=== PATIENT | female | born 1995 | race Hispanic/Latino ===

== ENCOUNTER 2016-09-04 02:38 | Emergency (ER) | payer BC ==
[2016-09-04 02:41] VITALS: BP 114/75; PULSE 80; RESP 18; TEMP 97.9; O2SAT 100
--- NOTE | 2016-09-04 03:32 | ED PDOC ---
HPI: Psych/Substance Abuse Time Seen by Provider: 09/04/16 02:42 Chief Complaint (Nursing): Alcohol Ingestion Chief Complaint (Provider): Alcohol Ingestion History Per: Patient History/Exam Limitations: intoxication Onset/Duration Of Symptoms: Hrs Current Symptoms Are (Timing): Still Present Additional History Per: Patient Additional Complaint(s): Kaya Veloz is a 21 year old female with no pertinent past medical history who presents to the ED for evaluation of alcohol intoxication. Denies any complains. No trauma. Past Medical History Reviewed: Historical Data, Nursing Documentation, Vital Signs Vital Signs: Last Vital Signs Temp 97.9 F 09/04/16 02:40 Pulse 80 09/04/16 02:40 Resp 18 09/04/16 02:40 BP 114/75 09/04/16 02:40 Pulse Ox 100 09/04/16 02:40 - Medical History PMH: No Chronic Diseases - Surgical History Surgical History: No Surg Hx - Family History Family History: States: Unknown Family Hx - Social History Alcohol: Social - Allergies Allergies/Adverse Reactions: Allergies Allergy/AdvReac Type Severity Reaction Status Date / Time No Known Allergies Allergy Verified 09/04/16 02:40 Review of Systems ROS Statement: Except As Marked, All Systems Reviewed And Found Negative Musculoskeletal: Negative for: Other (No head injuries) Neurological: Positive for: Change in Speech (Slurred speech), Altered Mental Status (Intoxicated) Physical Exam - Reviewed Nursing Documentation Reviewed: Yes Vital Signs Reviewed: Yes - Physical Exam Appears: Positive for: Well, No Acute Distress. Negative for: Non-toxic, Uncomfortable Head Exam: Positive for: ATRAUMATIC, NORMAL INSPECTION, NORMOCEPHALIC Skin: Positive for: Normal Color, Warm, Dry Eye Exam: Positive for: Normal appearance, EOMI, PERRL Neck: Positive for: Painless ROM, Supple Cardiovascular/Chest: Positive for: Regular Rate, Rhythm. Negative for: Tachycardia Respiratory: Positive for: Normal Breath Sounds. Negative for: Wheezing, Respiratory Distress Gastrointestinal/Abdominal: Positive for: Normal Exam, Soft. Negative for: Tenderness Neurologic/Psych: Positive for: Alert, Oriented, Gait (Unsteady) - ECG O2 Sat by Pulse Oximetry: 100 (RA) Pulse Ox Interpretation: Normal Medical Decision Making Medical Decision Makin: Initial Impression: Alcohol intoxication Initial Plan: * Alcohol serum * observed for clinical sobriety * Re-Eval 0500 Pt is alert and awake . Ambulatory with steady gait. Scribe Attestation: Documented by Karen Coronel acting as a scribe for Rikki Carl MD. Provider Scribe Attestation: All medical record entries made by [email or web address] at my direction and personally dictated by me. I have reviewed the chart and agree that the record accurately reflects my personal performance of the history, physical exam, medical decision making, and the department course for this patient. I have also personally directed, reviewed, and agree with the discharge instructions and disposition. Disposition - Clinical Impression Clinical Impression: Alcohol use - Patient ED Disposition Is Patient to be Admitted: No Doctor Will See Patient In The: Office Counseled Patient/Family Regarding: Studies Performed, Diagnosis, Need For Followup - Disposition Referrals: [facility] [place] [facility] [Outside] Disposition: Routine/Home Disposition Time: 05:00 Condition: GOOD Instructions: Alcohol Intoxication (ED)
== END 2016-09-04 05:55 | disposition home or self-care (01) ==
LOC: H.ER 02:38
DX: F10.129 Alcohol abuse with intoxication, unspecified (principal)